=== PATIENT | female | born 1935 | race Caucasian/White ===

== ENCOUNTER 2022-01-05 13:24 | Emergency (ER) | payer OTHER ==
[2022-01-05 14:42] LABS: HEMOGLOBIN 12.3 gm/dl (12.3-15.3); RED BLOOD COUNT 4.18 M/UL (4.00-5.10); WHITE BLOOD COUNT 11.4 K/UL (4.5-11.0)
[2022-01-05 15:07] LABS: BUN/CREATININE RATIO 15 (0-10)
[2022-01-05] MEDS ORDERED: HYDROCODON-ACE1 EAC4 PO (17:35)
== END 2022-01-05 18:15 | disposition home or self-care (01) ==
LOC: ER1 13:24
PROVIDERS: Emergency Medicine
DX: S42.321A Displaced transverse fracture of shaft of humerus, right arm, initial encounter for closed fracture (principal); I10 Essential (primary) hypertension; M25.551 Pain in right hip; W19.XXXA Unspecified fall, initial encounter
CPT/HCPCS: 70450; 71045; 73030; 73502; 80053; 82550; 82553; 84484; 85025; 93005; 99284

== ENCOUNTER 2022-01-09 12:28 | Emergency (ER) | payer OTHER ==
[~2022-01-09 12:28] MED LIST: HYDROCODON-ACE1 EAC4 PO
[2022-01-09] MEDS ORDERED: HYDROCODON-ACE1 EAC4 PO (17:12)
== END 2022-01-09 17:30 | disposition home or self-care (01) ==
LOC: ER1 12:28
DX: S22.41XA Multiple fractures of ribs, right side, initial encounter for closed fracture (principal); I10 Essential (primary) hypertension; W19.XXXA Unspecified fall, initial encounter; Y92.009 Unspecified place in unspecified non-institutional (private) residence as the place of occurrence of the external cause
CPT/HCPCS: 71101; 72100; 73502; 99283